=== PATIENT | male | born 1980 | race Hispanic/Latino ===

== ENCOUNTER 2024-04-22 04:40 | Emergency (ER) | payer OTHER ==
[~2024-04-22] VITALS: Ht 175.3 cm; Wt 140.6 kg
[2024-04-22] MEDS: ONDANSETRON HCL 4 MG ORAL DISINTEGRATING TAB PO ONE (05:52)
[2024-04-22 06:23] VITALS: PULSE 89; RESP 18; TEMP 97.6
[2024-04-22] MEDS ORDERED: ONDANSETRON ODT4 MG PO (06:26)
[2024-04-22 06:35] VITALS: BP 175/106; PULSE 89; RESP 18; TEMP 97.6; O2SAT 96
== END 2024-04-22 06:35 | disposition home or self-care (01) ==
LOC: FSED 04:45
DX: I10 Essential (primary) hypertension (principal); R42 Dizziness and giddiness; R11.2 Nausea with vomiting, unspecified; R94.31 Abnormal electrocardiogram [ECG] [EKG]
CPT/HCPCS: 80053; 82553; 84484; 85025; 93005; 99283; Q0162